=== PATIENT | female | born 1955 | race Native Hawaiian/Other Pacific Islander ===

== ENCOUNTER 2017-08-22 23:12 | Emergency (ER) | payer OTHER ==
[~2017-08-22] VITALS: Ht 167.6 cm; Wt 65.8 kg
--- NOTE | 2017-08-23 00:13 | NUR ---
PT BIBSELF AMBULATORY TO ER BED 2, C/O "FELL 2 MONTHS AGO ON MY LT; WOUND BURST WHILE IN BED TODAY" PT AOX3 RR EVEN AND UNLABORED. NO SOB NOTED. NAD NOTED. NO NVD AT THIS TIME. NOTED WOUND ON LEFT HIP WITH SEROSANGUINOUS DRIANAGE. DR. GRACIA MADE AWARE.
--- NOTE | 2017-08-23 00:20 | NUR ---
DR. GRACIA AT BEDSIDE FOR EVAL.
[2017-08-23] MEDS ORDERED: LIDOCAINE HCL/MPF 1% 30 ML VIAL IJ ONE (00:31)
--- NOTE | 2017-08-23 00:52 | NUR ---
DR. GRACIA AT BEDSIDE FOR WOUND DRAINGED.
[2017-08-23] MEDS ORDERED: CEPHALEXIN MONOHYDRATE 500 MG CAPSULE PO ONE ×2 (01:00→01:11)
--- NOTE | 2017-08-23 01:29 | NUR ---
DRESSED PT WOUND PER MD ORDER.
--- NOTE | 2017-08-23 01:33 | NUR ---
Patient discharged to home in stable condition. Written and verbal after care instructions given. Patient verbalizes understanding of instruction. ambulatory with a steady gait
[2017-08-23 01:34] VITALS: BP 138/65
== END 2017-08-23 01:35 | disposition home or self-care (01) ==
LOC: ER 23:17
DX: T81.30XA Disruption of wound, unspecified, initial encounter (principal); I25.10 Atherosclerotic heart disease of native coronary artery without angina pectoris; F17.200 Nicotine dependence, unspecified, uncomplicated; Z88.6 Allergy status to analgesic agent; Z71.6 Tobacco abuse counseling; X58.XXXA Exposure to other specified factors, initial encounter; Y93.89 Activity, other specified; Y92.89 Other specified places as the place of occurrence of the external cause; Y99.8 Other external cause status
CPT/HCPCS: A4217; A4606; A6403; J3490; Z7610

== ENCOUNTER 2024-05-03 07:12 | Emergency (ER) | payer BC ==
[~2024-05-03] VITALS: Ht 167.6 cm; Wt 65.3 kg
[2024-05-03] MEDS ORDERED: LIDOCAINE 2% JEL UROJET 10 ML MM ONE (07:34)
[2024-05-03] MEDS ORDERED: OXYMETAZOLINE HCL NASAL SPRAY 30 ML BOTTLE NS ONE (07:38)
[2024-05-03] MEDS: OXYMETAZOLINE HCL NASAL SPRAY 30 ML BOTTLE NS ONE (07:57)
[2024-05-03] MEDS: LIDOCAINE VISCOUS 2% UD 15 ML UDC MM ONE (07:57)
[2024-05-03 08:51] VITALS: BP 134/69; TEMP 98; O2SAT 99
== END 2024-05-03 08:51 | disposition home or self-care (01) ==
LOC: ER 07:15
DX: R04.0 Epistaxis (principal); I10 Essential (primary) hypertension; I25.10 Atherosclerotic heart disease of native coronary artery without angina pectoris; F17.200 Nicotine dependence, unspecified, uncomplicated; E78.5 Hyperlipidemia, unspecified; Z95.5 Presence of coronary angioplasty implant and graft; Z88.6 Allergy status to analgesic agent
CPT/HCPCS: 99283; J3490

== ENCOUNTER 2024-05-04 13:34 | Emergency (ER) | payer BC ==
[~2024-05-04] VITALS: Ht 167.6 cm; Wt 65.8 kg
[2024-05-04 14:00] VITALS: BP 133/82; TEMP 98.4; O2SAT 97
[2024-05-04] MEDS ORDERED: OXYMETAZOLINE HCL NASAL SPRAY 30 ML BOTTLE NS ONE (14:14)
[2024-05-04] MEDS: OXYMETAZOLINE HCL NASAL SPRAY 30 ML BOTTLE NS ONE (14:35)
[2024-05-05] MEDS ORDERED: AMOX-430 PO (12:21)
== END 2024-05-04 15:30 | disposition home or self-care (01) ==
LOC: ER 15:28
DX: R04.0 Epistaxis (principal); I10 Essential (primary) hypertension; E78.5 Hyperlipidemia, unspecified; I25.10 Atherosclerotic heart disease of native coronary artery without angina pectoris; F17.200 Nicotine dependence, unspecified, uncomplicated; Z79.82 Long term (current) use of aspirin; Z88.6 Allergy status to analgesic agent; Z87.39 Personal history of other diseases of the musculoskeletal system and connective tissue

== ENCOUNTER 2024-05-05 10:25 | Emergency (ER) | payer BC ==
[~2024-05-05] VITALS: Ht 167.6 cm; Wt 65.8 kg
[2024-05-05 11:22] LABS: BASOPHILS # (AUTO) 0.1 K/uL (0.0-0.2); BASOPHILS % (AUTO) 0.7 % (0.0-2.0); EOSINOPHILS # (AUTO) 0.1 K/uL (0.0-0.7); EOSINOPHILS % (AUTO) 0.8 % (0.0-6.0); HEMATOCRIT 41 % (33-45); HEMOGLOBIN 13.7 g/dL (11.5-14.8); LYMPHOCYTES # (AUTO) 1.6 K/uL (0.8-4.8); LYMPHOCYTES % (AUTO) 20.9 % (20.0-44.0); MEAN CORPUSCULAR HEMOGLOBIN 30 PG (26.0-33.0); MEAN CORPUSCULAR HGB CONC 33 g/dl (31.0-36.0); MEAN CORPUSCULAR VOLUME 90 fL (82-100); MONOCYTES # (AUTO) 0.4 K/uL (0.1-1.30); MONOCYTES % (AUTO) 5.6 % (2.0-12.0); NEUTROPHILS # (AUTO) 5.5 K/uL (1.8-8.9); PLATELET COUNT (AUTO) 233 K/uL (150-450); RED BLOOD CELL COUNT(AUTO) 4.59 MIL/uL (4.0-5.2); RED CELL DISTRIBUTION WIDTH 13.2 % (11.5-15.0); WHITE BLOOD COUNT (AUTO) 7.6 K/uL (4.3-11.0)
[2024-05-05 11:41] LABS: CALCIUM, SERUM 9.2 mg/dL (8.5-10.1); CREATININE 0.6 mg/dL (0.6-1.3)
[2024-05-05 11:45] LABS: INR 0.97 (0.91-1.10); PROTHROMBIN TIME 10.3 SECS (9.2-11.1)
[2024-05-05] MEDS ORDERED: AMOX-430 PO (12:21)
[2024-05-05 12:28] VITALS: BP 136/82; TEMP 98.7; O2SAT 99
== END 2024-05-05 12:28 | disposition home or self-care (01) ==
LOC: ER 11:42
DX: R04.0 Epistaxis (principal); I10 Essential (primary) hypertension; I25.10 Atherosclerotic heart disease of native coronary artery without angina pectoris; F17.200 Nicotine dependence, unspecified, uncomplicated; E78.5 Hyperlipidemia, unspecified; Z95.5 Presence of coronary angioplasty implant and graft; Z88.6 Allergy status to analgesic agent
CPT/HCPCS: 99284; 30901; 85025; 80048; 85610; 36415; 86850; A4217

== ENCOUNTER 2024-05-07 08:31 | Emergency (ER) | payer BC ==
[~2024-05-07] VITALS: Ht 167.6 cm; Wt 65.8 kg
[~2024-05-07 08:31] MED LIST: AMOX-430 PO
[2024-05-07 09:23] VITALS: BP 118/70; TEMP 98.3; O2SAT 98
== END 2024-05-07 09:20 | disposition home or self-care (01) ==
LOC: ER 08:31
DX: R04.0 Epistaxis (principal); I25.10 Atherosclerotic heart disease of native coronary artery without angina pectoris; I10 Essential (primary) hypertension; F17.200 Nicotine dependence, unspecified, uncomplicated; Z88.6 Allergy status to analgesic agent; Z48.00 Encounter for change or removal of nonsurgical wound dressing; Z98.890 Other specified postprocedural states